=== PATIENT | female | born 1965 | race Caucasian/White ===

== ENCOUNTER 2016-10-07 20:40 | Emergency (ER) | payer SELFPAY ==
[2016-10-07 20:58] VITALS: BP 136/80; PULSE 72; TEMP 97.9; BMI 28.6
--- NOTE | 2016-10-07 22:59 | PDOC ---
History of Present Illness - General History Source: Patient Exam Limitations: No Limitations - History of Present Illness Initial Comments: 10/07/16 23:05 The patient is a 51 year old female with a significant past medical history of HTN, who presents to the ED with worsening dizziness and headaches today. Patient states these symptoms originally began 4 days ago. She states she is diaphoretic secondary to the dizziness. She states she was her ENT, who placed her on an antivert. She denies fever, chills, nausea, vomiting, diarrhea. She denies dysuria, frequency, hematuria. She states she has an appointment scheduled with her neurologist in 3 weeks. Past surgical hx: hysterectomy <Amos Escamilla - Last Filed: 10/07/16 23:15> <Sparkle Starr - Last Filed: 10/07/16 23:59> - General Chief Complaint: Lightheaded Stated Complaint: Headache Time Seen by Provider: 10/07/16 21:05 Past History <Amos Escamilla - Last Filed: 10/07/16 23:15> - Past Medical History HTN: Yes - Psycho/Social/Smoking Cessation Hx Suicidal Ideation: No Smoking History: Never smoked Information on smoking cessation initiated: No Hx Alcohol Use: No Drug/Substance Use Hx: No Substance Use Type: None <Sparkle Starr - Last Filed: 10/07/16 23:59> - Past Medical History Allergies/Adverse Reactions: Allergies Allergy/AdvReac Type Severity Reaction Status Date / Time No Known Allergies Allergy Verified 10/07/16 20:54 Home Medications: Ambulatory Orders Losartan/Hydrochlorothiazide [Losartan-Hctz 100-12.5 mg Tab] 12.5 mg PO DAILY Meclizine HCl 12.5 mg PO 10/07/16 Review of Systems - Review of Systems Able to Perform ROS?: Yes Comments:: 10/07/16 23:05 CONSTITUTIONAL: Absent: fever, chills, diaphoresis, generalized weakness, malaise, loss of appetite HEENT: Absent: rhinorrhea, nasal congestion, throat pain, throat swelling, difficulty swallowing, mouth swelling, ear pain, eye pain, visual Changes CARDIOVASCULAR: Absent: chest pain, syncope, palpitations, irregular heart rate, lightheadedness , peripheral edema RESPIRATORY: Absent: cough, shortness of breath, dyspnea with exertion, orthopnea, wheezing, stridor, hemoptysis GASTROINTESTINAL: Absent: abdominal pain, abdominal distension, nausea, vomiting, diarrhea, constipation, melena, hematochezia GENITOURINARY: Absent: dysuria, frequency, urgency, hesitancy, hematuria, flank pain, genital pain MUSCULOSKELETAL: Absent: myalgia, arthralgia, joint swelling SKIN: Absent: rash, itching, pallor HEMATOLOGIC/IMMUNOLOGIC: Absent: easy bleeding, easy bruising, lymphadenopathy, frequent infections ENDOCRINE: Absent: unexplained weight gain, unexplained weight loss, heat intolerance, cold intolerance NEUROLOGIC: Present: dizziness, headaches. Absent: focal weakness or paresthesias, unsteady gait, seizure, mental status changes, bladder or bowel incontinence PSYCHIATRIC: Absent: anxiety, depression, suicidal or homicidal ideation, hallucinations. <Amos Escamilla - Last Filed: 10/07/16 23:15> *Physical Exam - Vital Signs Last Vital Signs Temp Pulse Resp BP Pulse Ox 97.9 F 72 20 136/80 99 10/07/16 20:56 10/07/16 20:56 10/07/16 20:56 10/07/16 20:56 10/07/16 20:56 - Physical Exam Comments: 10/07/16 23:06 GENERAL: Well developed, well nourished. Awake and alert. No acute distress. HEENT: Normocephalic, atraumatic. PERRLA, EOMI. No conjunctival pallor. Sclera are non- icteric. Moist mucous membranes. Oropharynx is clear. NECK: Supple. Full ROM. No JVD. Carotid pulses 2+ and symmetric, without bruits. No thyromegaly. No lymphadenopathy. CARDIOVASCULAR: Regular rate and rhythm. No murmurs, rubs, or gallops. Distal pulses are 2+ and symmetric. PULMONARY: No evidence of respiratory distress. Lungs clear to auscultation bilaterally. No wheezing, rales or rhonchi. ABDOMINAL: Soft. Non-tender. Non-distended. No rebound or guarding. No organomegaly. Normoactive bowel sounds. MUSCULOSKELETAL Normal range of motion at all joints. No bony deformities or tenderness. No CVA tenderness. EXTREMITIES: No cyanosis. No clubbing. No edema. No calf tenderness. SKIN: Warm and dry. Normal capillary refill. No rashes. No jaundice. NEUROLOGICAL: Alert, awake, appropriate. Cranial nerves 2-12 intact. No deficits to light touch and temperature in face, upper extremities and lower extremities. No motor deficits in the in face, upper extremities and lower extremities. Normoreflexic in the upper and lower extremities. Normal speech. Toes are down-going bilaterally. Gait is normal without ataxia. PSYCHIATRIC: Cooperative. Good eye contact. Appropriate mood and affect. <Amos Escamilla - Last Filed: 10/07/16 23:15> - Vital Signs Last Vital Signs Temp Pulse Resp BP Pulse Ox 97.9 F 72 20 136/80 99 10/07/16 20:56 10/07/16 20:56 10/07/16 20:56 10/07/16 20:56 10/07/16 20:56 <Sparkle Starr - Last Filed: 10/07/16 23:59> ED Treatment Course - RADIOLOGY Radiology Studies Ordered: Category Date Time Status HEAD CT WITHOUT CONTRAST [CT] Stat CT Scan 10/07/16 22:36 Ordered <Sparkle Starr - Last Filed: 10/07/16 23:59> Medical Decision Making - Medical Decision Making 10/07/16 23:57 51-year-old female who has been having vertigo for this at least 3 weeks. Presents because her meclizine does not appear to be helping She did see her nose and throat doctor for this and she also has an appointment with a neurologist coming up. She has no focal neural deficits She denies fever, chills, visual changes, neck pain pt has vital signs CAT scan of the head showed a normal brain. No hemorrhage. No masses. No visible infarct. Osseous structures were intact Impression vertigo Plan patient to follow-up with neurology <Sparkle Starr - Last Filed: 10/07/16 23:59> *DC/Admit/Observation/Transfer - Attestations Scribe Attestion: 10/07/16 23:06 Documentation prepared by Amos Escamilla, acting as biomedical engineering supervisor for Sparkle Starr MD. <Amos Escamilla - Last Filed: 10/07/16 23:15> <Sparkle Starr - Last Filed: 10/07/16 23:59> Diagnosis at time of Disposition: Vertigo - Discharge Dispostion Disposition: HOME Condition at time of disposition: Stable - Patient Instructions Printed Discharge Instructions: DI for Vertigo Additional Instructions: Please followup with your regular physician and neurologist
--- NOTE | 2016-10-10 14:51 | EKG ---
Test Reason : Blood Pressure : / mmHG Vent. Rate : 059 BPM Atrial Rate : 059 BPM P-R Int : 130 ms QRS Dur : 082 ms QT Int : 436 ms P-R-T Axes : 036 051 045 degrees QTc Int : 431 ms POOR DATA QUALITY, INTERPRETATION MAY BE ADVERSELY AFFECTED SINUS BRADYCARDIA OTHERWISE NORMAL ECG NO PREVIOUS ECGS AVAILABLE Confirmed by IRA BRYANT MD ([id number]) on 10/10/2016 2:50:40 PM Referred By: Confirmed By:IRA BRYANT MD
== END 2016-10-08 00:03 | disposition home or self-care (01) ==
LOC: JER 20:40
DX: R42 Dizziness and giddiness (principal); I10 Essential (primary) hypertension
CPT/HCPCS: 70450-TC; 93005; 93010; 99281-25